=== PATIENT | male | born 1970 | race Hispanic/Latino ===

== ENCOUNTER 2016-10-03 08:19 | Day surgery (SDC) | payer MEDICAID ==
[2016-10-03 09:02] VITALS: BP 110/63
[2016-10-03 09:14] LABS: INR 1.04 (0.87-1.13)
[2016-10-03 09:15] LABS: Partial Thromboplastin Time 29.6 Sec. (24.2-36.6)
--- NOTE | 2016-10-03 15:13 | Ultrasound Report ---
Abdominal ultrasound. History: Ascites. Findings: The abdominal aorta is normal. There is increased echogenicity of the hepatic parenchyma with no focal abnormalities. The gallbladder appears contracted and contains low-level echoes with no distal acoustic shadowing. Gallbladder Wall thickness is inaccurate with this degree of contraction of the gallbladder. The common bile duct is normal in caliber at 3.3 mm. The kidneys are normal in size and configuration with no evidence of hydronephrosis or mass. The longitudinal axis of the right kidney measures 11.0 cm and of the left kidney measures 12.9 cm. The spleen and pancreas are unremarkable. No abnormal fluid collections are seen. Impression: 1. Hepatic steatosis. 2: Contracted gallbladder with probable sludge, but no gallstones are identified. 3. Paracentesis was not performed due to the absence of ascites.
== END 2016-10-03 11:22 | disposition home or self-care (01) ==
LOC: OPU 08:19 → EDSTATUS 08:30 → OPU 11:22
PROVIDERS: ATTEND Internal Medicine Gastroenterology
DX: R18.8 Other ascites (principal); Z53.8 Procedure and treatment not carried out for other reasons; K82.0 Obstruction of gallbladder; K76.0 Fatty (change of) liver, not elsewhere classified
CPT/HCPCS: 36415; 76700; 85610; 85730

== ENCOUNTER 2016-11-06 08:52 | Day surgery (SDC) | payer MEDICAID ==
--- NOTE | 2016-11-06 09:52 | Anesthesia Consultation ---
Anesthesia Consult and Med Hx Date of service: 11/06/16 - Airway Anesthetic Teeth Evaluation: Poor ROM Head & Neck: Adequate Mental/Hyoid Distance: Inadequate Mallampati Class: Class II Intubation Access Assessment: Probably Good - Pulmonary Exam CTA: Yes - Cardiac Exam Cardiac Exam: RRR - Pre-Operative Health Status ASA Pre-Surgery Classification: ASA3 Proposed Anesthetic Plan: MAC - Pulmonary Hx Smoking: Yes (1PPD) Hx Asthma: No COPD: No Hx Pneumonia: No Hx Sleep Apnea: No - Cardiovascular System Hx Hypertension: No - Central Nervous System Hx Seizures: Yes (last seizure approx 6 months ago) Hx Psychiatric Problems: Yes - Gastrointestinal Hx Gastroesophageal Reflux Disease: Yes - Endocrine Hx Cirrhosis: Yes Hx Liver Disease: Yes (CIRRHOSIS, 3-4 beers/day) Hx Non-Insulin Dependent Diabetes: Yes - Hematic Hx Anemia: Yes Hx Sickle Cell Disease: No - Other Systems Hx Alcohol Use: Yes Hx Substance Use: No Hx Cancer: No Hx Obesity: Yes
--- NOTE | 2016-11-06 09:52 | Anesthesia Day of Surgery ---
Anesthesia Day of Surgery - Day of Surgery Patient Examined: Yes Patient H&P Reviewed: Yes Patient is NPO: Yes
[2016-11-06] MEDS ORDERED: NACL 0.9% 1000 ML 1,000 ML IV SCH (10:00)
[2016-11-06] MEDS ORDERED: DIPRIVAN 10 MG/ML IV ONE (10:03)
[2016-11-06 11:12] VITALS: BP 113/62
--- NOTE | 2016-11-06 11:29 | Short Stay Summary ---
Short Stay Documentation Date of service: 11/06/16 - History H&P: obtained from office - Allergies and Medications Current Medications: Allergies No Known Allergies Allergy (Verified 03/10/15 13:52) Home Medications Medication Instructions Recorded Confirmed Last Taken Type Furosemide [Lasix] 20 mg PO DAILY 10/13/14 11/06/16 11/05/16 History Gabapentin [Neurontin] 300 mg PO TID 10/13/14 11/06/16 11/05/16 History Spironolactone [Aldactone] 50 mg PO TID 10/13/14 11/06/16 11/05/16 History levETIRAcetam [Keppra TAB] 500 mg PO DAILY 10/13/14 11/06/16 11/05/16 History Stool Softener 1 tab PO DAILY 02/13/15 11/06/16 10/02/16 History 10 cap HYDROcodone/APAP 5-325 [[place] 1 each PO Q8HR PRN #20 tablet 03/10/15 11/06/16 Rx 5-325 mg TAB] ALBUTEROL Inhaler [ProAir HFA 2 puff INHALATION Q4H PRN 10/03/16 11/06/16 History Inhaler] Lisinopril [Zestril] 5 mg PO QDAY 10/03/16 11/06/16 11/05/16 History Pravastatin Sodium [Pravastatin] 20 mg PO DAILY 10/03/16 11/06/16 11/05/16 History metFORMIN [Glucophage] 850 mg PO BID 10/03/16 11/06/16 11/05/16 History Active Medications Sodium Chloride (Nacl 0.9% 1000 Ml) 1,000 mls @ 50 mls/hr IV DIRECT MOLLY Last Admin: 11/06/16 09:51 Dose: 50 mls/hr - Brief post op/procedure progress note Date of procedure: 11/06/16 Procedure: report dictated Findings: report dictated Estimated blood loss: none Pathology: list (antral biopsies for h.pylori) Specimen disposition: to lab Condition: stable - Disposition Condition at discharge: Good Disposition: DISCHARGED TO HOME OR SELFCARE - Discharge Diagnoses (1) Epigastric pain Status: Acute (2) Cirrhosis Status: Acute Qualifiers: Hepatic cirrhosis type: H Ascites presence: A Short Stay Discharge Plan Activity: other (no driving for 24 hours) Weight Bearing Status: Weight Bear as Tolerated Diet: low salt Follow up with: BENJY GAGE DO [Primary Care Provider] - 7 Days
--- NOTE | 2016-11-06 11:29 | Operative Report ---
Operative Report Operative Report: Date of procedure: 11/06/2016 Procedure: Topical gastroduodenoscopy with biopsies of the antrum for H. pylori. Preprocedure diagnosis: Abdominal pain. Cirrhosis with a history of ascites. Post procedure diagnosis: Erosive antral gastritis, probable portal hypertension gastropathy. No varices. Pyloric deformity consistent with prior ulcer. Endoscopist: Dr. Britt Anesthesia: Monitored anesthesia care per anesthesia department Medications: Propofol per anesthesia. Estimated blood loss: 0 After careful discussion of the nature and purpose of the procedure as well as details the technique risks benefits and alternatives consent was obtained. The patient was placed in the left lateral decubitus position and medicated per anesthesia. The tip of the [place] EQ 570 video scope was passed per orum under direct vision into the esophagus and advanced into the stomach and descending duodenum. The descending duodenum the duodenal bulb and pylorus were symmetrical and normal. The scope was withdrawn into the stomach and the stomach then gently insufflated with air. The antrum revealed a prepyloric inactive craters suggestive of a prior ulcer in the prepyloric region. Multiple punctate erosions were also present. 3 biopsies were taken to assess for possible H. pylori infection. The stomach was further insufflated and the scope was then retroflexed and partially withdrawn. The cardia, fundus, and body of the stomach revealed mild vascular congestion suggestive of mild portal hypertension gastropathy. The scope was then withdrawn in the forward position. The esophagogastric junction was at 40 cm. The esophageal body was normal throughout. The procedure was was well tolerated and the patient was observed in recovery. Impressions: Erosive antral gastritis and an inactive craters suggesting a prior ulcer. Mild portal hypertension gastropathy is likely present. No varices. Plan: Start omeprazole which the patient has not yet begun. Await results of biopsies. Office follow-up in 3 months. Electronically signed: Arash Britt MD
--- NOTE | 2016-11-06 11:30 | Post Anesthesia Evaluation ---
- Post Anesthesia Evaluation Patient Participated: Yes Airway Patent: Yes Stable Respiratory Function: Yes Nausea/Vomiting: No Temp > 96.8F: Yes Pain Manageable: Yes Adequeate Hydration: Yes Anesthesia Complications: No Block Receding Appropriately: Not Applicable Patient on Ventilator: No
== END 2016-11-06 08:53 | disposition home or self-care (01) ==
LOC: GIO 08:52
PROVIDERS: ATTEND Internal Medicine Gastroenterology
DX: K29.50 Unspecified chronic gastritis without bleeding (principal); K21.9 Gastro-esophageal reflux disease without esophagitis; D64.9 Anemia, unspecified; F41.9 Anxiety disorder, unspecified; F32.9 Major depressive disorder, single episode, unspecified; I50.9 Heart failure, unspecified; F17.210 Nicotine dependence, cigarettes, uncomplicated; E11.9 Type 2 diabetes mellitus without complications; E66.9 Obesity, unspecified; Z68.36 Body mass index [BMI] 36.0-36.9, adult; Z79.84 Long term (current) use of oral hypoglycemic drugs; Z79.899 Other long term (current) drug therapy
CPT/HCPCS: 43239; 82962; 88305; 88342; J2704

== ENCOUNTER 2017-11-14 10:31 | Day surgery (SDC) | payer MEDICAID ==
[2017-11-14 11:31] LABS: Basophils # (Auto) 0.1 K/mm3 (0.0-0.1); Basophils % (Auto) 0.9 % (0.0-1.8); Eosinophils # (Auto) 0.2 K/mm3 (0.0-0.4); Eosinophils % (Auto) 1.5 % (0.0-4.3); Hematocrit 26.7 % (35.5-45.6); Hemoglobin 8.8 gm/dl (11.8-15.2); Lymphocytes # (Auto) 1.9 K/mm3 (1.2-5.4); Mean Corpuscular HGB Conc 33 % (32-34); Mean Corpuscular Hemoglobin 36 pg (28-32); Mean Corpuscular Volume 107 fl (84-94); Platelet Count 253 K/mm3 (140-440); Red Blood Count 2.49 M/mm3 (3.65-5.03); Red Cell Distribution Width 14.5 % (13.2-15.2)
[2017-11-14 11:41] LABS: INR 1.16 (0.87-1.13)
[2017-11-14 11:42] LABS: Partial Thromboplastin Time 38.2 Sec. (24.2-36.6)
[2017-11-14 11:46] LABS: Alanine Aminotransferase 10 units/L (7-56); Albumin 2.2 g/dL (3.9-5); BUN/Creatinine Ratio 19; Blood Urea Nitrogen 21 mg/dL (9-20); Calcium 8.4 mg/dL (8.4-10.2)
[2017-11-14 11:47] LABS: Hemolysis Index 15
[2017-11-14 13:11] VITALS: BP 100/57
--- NOTE | 2017-11-14 13:48 | Short Stay Summary ---
Short Stay Documentation Date of service: 11/14/17 - History Past Medical History: liver disease - Allergies and Medications Current Medications: Allergies No Known Allergies Allergy (Verified 03/10/15 13:52) Home Medications Medication Instructions Recorded Confirmed Last Taken Type Furosemide [Lasix] 20 mg PO DAILY 10/13/14 11/14/17 11/14/17 History 20mg Gabapentin [Neurontin] 300 mg PO TID 10/13/14 11/14/17 11/13/17 History 300mg Spironolactone [Aldactone] 50 mg PO TID 10/13/14 11/14/17 11/13/17 History 50mg levETIRAcetam [Keppra TAB] 500 mg PO DAILY 10/13/14 11/14/17 11/13/17 History 500mg Stool Softener 1 tab PO DAILY 02/13/15 11/14/17 11/13/17 History 1 HYDROcodone/APAP 5-325 [[place] 1 each PO Q8HR PRN #20 tablet 03/10/15 11/14/17 11:16 Rx 5-325 mg TAB] 1 ALBUTEROL Inhaler [ProAir HFA 2 puff INHALATION Q4H PRN 10/03/16 11/14/17 History Inhaler] 2 Lisinopril [Zestril TAB] 5 mg PO QDAY 10/03/16 11/14/17 11/13/17 History 5mg Pravastatin Sodium [Pravastatin] 20 mg PO DAILY 10/03/16 11/14/17 11/13/17 History 20mg metFORMIN [Glucophage] 850 mg PO DAILY 10/03/16 11/14/17 11/13/17 History 850mg - Physical exam General appearance: no acute distress Gastrointestinal: distended - Brief post op/procedure progress note Date of procedure: 11/14/17 Pre-op diagnosis: Ascites, liver disease Post-op diagnosis: same Procedure: US guided paracentesis Anesthesia: local Findings: 5.6 liters of yellow serous fluid removed. Surgeon: KIAH GUAMAN Estimated blood loss: none Pathology: none Specimen disposition: discarded Condition: stable - Disposition Condition at discharge: Good Disposition: DC-01 TO HOME OR SELFCARE Short Stay Discharge Plan Follow up with: BENJY GAGE [Primary Care Provider] - 7 Days
--- NOTE | 2017-11-19 12:54 | Ultrasound Report ---
ULTRASOUND-GUIDED PARACENTESIS INDICATION: Alcoholic cirrhosis of liver. COMPARISON: 08/11/2009. FINDINGS: After explaining the risk and benefits to the patient, written informed consent obtained. Using ultrasound guidance, an appropriate skin site in the left lower quadrant marked. Skin prepped and draped in the usual sterile fashion. 1% Xylocaine used for local anesthesia. Using ultrasound guidance, a 5 [place] Yueh catheter was placed into the fluid collection and 5600 cc of straw-colored fluid aspirated. No sample sent to laboratory. Catheter removed and hemostasis achieved. Patient tolerated the procedure well and left the radiology department in stable condition. CONCLUSION: Ultrasound guided paracentesis, as described above. Dr. Wilson present for and performed the entire procedure. Thank you for the opportunity to participate in this patient's care.
== END 2017-11-14 13:30 | disposition home or self-care (01) ==
LOC: CATHLABREC 10:31 → EDSTATUS 12:00 → CATHLABREC 13:30
PROVIDERS: ATTEND Internal Medicine Gastroenterology
DX: R18.8 Other ascites (principal); K76.9 Liver disease, unspecified; Z79.01 Long term (current) use of anticoagulants
CPT/HCPCS: 36415; 49083; 80053; 85025; 85610; 85730